=== PATIENT | male | born 1935 | race Asian ===

== ENCOUNTER 2019-12-29 12:08 | Emergency (ER) | payer OTHER ==
[~2019-12-29] VITALS: Ht 154.9 cm; Wt 64.4 kg
[2019-12-29 12:26] VITALS: BP_SYST 105
[2019-12-29 13:25] LABS: BASOPHILS # (AUTO) 0.1 K/uL (0.0-0.2); EOSINOPHILS # (AUTO) 0.1 K/uL (0.0-0.4); HEMATOCRIT 31.1 % (36-54); HEMOGLOBIN 10.1 g/dL (14.0-18.0); LYMPHOCYTES # (AUTO) 1.7 K/uL (1.0-5.5); LYMPHOCYTES % (AUTO) 26.3 % (20.5-51.5); MEAN CORPUSCULAR HEMOGLOBIN 30 pg (27-31); MEAN CORPUSCULAR HGB CONC 33 % (32-36); MEAN CORPUSCULAR VOLUME 93 fL (79.0-98.0); MONOCYTES # (AUTO) 0.5 K/uL (0.0-1.0); MONOCYTES % (AUTO) 7.4 % (1.7-9.3); NEUTROPHILS % (AUTO) 63.3 % (40.0-70.0); PLATELET COUNT (AUTO) 148 K/uL (130-430); RED BLOOD CELL COUNT(AUTO) 3.33 MIL/uL (4.2-6.2); RED CELL DISTRIBUTION WIDTH 13.8 % (9.0-15.0); WHITE BLOOD COUNT (AUTO) 6.3 K/uL (4.8-10.8)
[2019-12-29 13:28] LABS: ANION GAP 6 (5-15); CALCIUM 8.2 mg/dL (8.4-11.0); CHLORIDE 109 mmol/L (98-107); CREATININE 2.03 mg/dL (0.55-1.30); GLUCOSE 143 mg/dL (70-99); POTASSIUM 4.7 mmol/L (3.5-5.1); SODIUM SERUM 141 mmol/L (136-145); UREA NITROGEN, BLOOD 32 mg/dL (8-21)
[2019-12-29 13:39] LABS: ALANINE AMINOTRANSFERASE 21 U/L (12-78); ASPARTATE AMINOTRANSFERASE 15 U/L (10-37); TOTAL BILIRUBIN 0.6 mg/dL (0.0-1.0)
[2019-12-29 14:03] VITALS: BP_SYST 105
== END 2019-12-29 14:01 | disposition home or self-care (01) ==
LOC: SED 12:08
DX: K92.1 Melena (principal); K64.4 Residual hemorrhoidal skin tags; N17.9 Acute kidney failure, unspecified; I10 Essential (primary) hypertension; E11.9 Type 2 diabetes mellitus without complications
CPT/HCPCS: 36415; 80053; 85025; 93005; 99284

== ENCOUNTER 2023-04-16 19:12 | Inpatient (IN) | payer OTHER ==
[~2023-04-16] VITALS: Ht 157.5 cm; Wt 70.3 kg
[2023-04-16] MEDS ORDERED: NACL 0.9% 1,000 ML IV ONE (20:00)
[2023-04-16 21:04] LABS: EOSINOPHILS % (AUTO) 0.1 % (0.0-4.0); HEMATOCRIT 44.6 % (36-54); HEMOGLOBIN 14.1 g/dL (14.0-18.0); LYMPHOCYTES # (AUTO) 0.9 K/uL (1.0-5.5); LYMPHOCYTES % (AUTO) 5.6 % (20.5-51.5); MEAN CORPUSCULAR HEMOGLOBIN 29 pg (27-31); MEAN CORPUSCULAR HGB CONC 32 % (32-36); MEAN CORPUSCULAR VOLUME 93 fL (79.0-98.0); MONOCYTES # (AUTO) 1.4 K/uL (0.0-1.0); MONOCYTES % (AUTO) 8.4 % (1.7-9.3); NEUTROPHILS # (AUTO) 13.9 K/uL (1.8-7.7); NEUTROPHILS % (AUTO) 85.9 % (40.0-70.0); RED BLOOD CELL COUNT(AUTO) 4.83 MIL/uL (4.2-6.2); RED CELL DISTRIBUTION WIDTH 14.3 % (9.0-15.0); WHITE BLOOD COUNT (AUTO) 16.2 K/uL (4.8-10.8)
[2023-04-16 21:09] LABS: ALANINE AMINOTRANSFERASE 1122 U/L (12-78); ALBUMIN 2.7 g/dL (3.4-4.8); ANION GAP 7 (5-15); ASPARTATE AMINOTRANSFERASE 177 U/L (10-37); BILIRUBIN,DIRECT 1.5 mg/dL (0.0-0.3); CALCIUM 9.1 mg/dL (8.4-11.0); CARBON DIOXIDE 25 mmol/L (23-29); CHLORIDE 100 mmol/L (98-107); CREATININE 2.77 mg/dL (0.55-1.30); GLUCOSE 137 mg/dL (74-106); LIPASE 48 U/L (16-77); POTASSIUM 4.9 mmol/L (3.5-5.1); SODIUM SERUM 132 mmol/L (136-145); TOTAL BILIRUBIN 2.4 mg/dL (0.0-1.0); TOTAL PROTEIN, SERUM 7.3 g/dL (6.4-8.3); UREA NITROGEN, BLOOD 41 mg/dL (8-21)
[2023-04-16] MEDS ORDERED: ACETAMINOPHEN 325 MG TABLET PO PRN (21:30)
[2023-04-16] MEDS ORDERED: MAGNESIUM SULFATE 50 ML IV PRN (21:30)
[2023-04-16] MEDS ORDERED: ZOLPIDEM TARTRATE 5 MG TABLET PO PRN (21:30)
[2023-04-16] MEDS ORDERED: MUPIROCIN 2% TOPICAL OINTMENT 22 GM NS PRN (21:30)
[2023-04-16] MEDS ORDERED: POTASSIUM CHLORIDE 20 MEQ TABLET.ER PO PRN (21:30)
[2023-04-16] MEDS ORDERED: DOCUSATE SODIUM 100 MG CAPSULE PO PRN (21:30)
[2023-04-16] MEDS ORDERED: ONDANSETRON HCL 4 MG/2 ML VIAL IVP PRN (21:30)
[2023-04-16] MEDS ORDERED: LORazepam 2 MG/ML VIAL IVP PRN (21:30)
[2023-04-16] MEDS ORDERED: MORPHINE 2 MG/ML INJ. SYRINGE IVP PRN ×2 (21:30)
[2023-04-16 21:41] LABS: BILIRUBIN,URINE 2+ (NEGATIVE); COLOR,URINE ORANGE (YELLOW); GLUCOSE,URINE NEGATIVE (NEGATIVE); KETONES,URINE NEGATIVE (NEGATIVE); LEUKOCYTE ESTERASE ,URINE NEGATIVE (NEGATIVE); NITRITE, URINE NEGATIVE (NEGATIVE); PROTEIN URINE 2+ (NEGATIVE)
[2023-04-16] MEDS ORDERED: DEXTROSE 50% JECT 50 ML DISP.SYRIN IVP PRN (21:45)
[2023-04-16 21:47] LABS: BLOOD, URINE TRACE (NEGATIVE); CLARITY/URINE HAZY (CLEAR)
[2023-04-16] MEDS ORDERED: NIFE-129 PO (21:52)
[2023-04-16] MEDS ORDERED: FINA5TAB11 PO (21:52)
[2023-04-16] MEDS ORDERED: LOSA100T24 PO (21:52)
[2023-04-16] MEDS ORDERED: SIMV-345 PO (21:52)
[2023-04-16] MEDS ORDERED: ATEN50TA PO (21:52)
[2023-04-16] MEDS ORDERED: METF-379 PO (21:52)
[2023-04-16] MEDS ORDERED: TAMS-11 PO (21:52)
[2023-04-16 21:53] LABS: BACTERIA,URINE FEW /HPF (None Seen); RBC,URINE 0-3 /HPF (0-3); WBC,URINE 0-3 /HPF (0-3)
[2023-04-16] MEDS ORDERED: ASA81 PO (21:53)
[2023-04-16 21:54] LABS: COARSE GRANULAR CASTS,URINE 0-10 /LPF (None Seen); FINE GRANULAR CASTS,URINE 0-10 /LPF (None Seen); MUCUS,URINE 1+ /LPF (None Seen)
[2023-04-16 22:06] LABS: PLATELET COUNT (AUTO) 73 K/uL (130-430)
[2023-04-16 22:55] VITALS: BP_SYST 110; PULSE 84; RESP 18; TEMP 98.3; O2SAT 97
[2023-04-16 23:28] VITALS: BP_SYST 135; PULSE 84; RESP 20; TEMP 97.5
[2023-04-17] VITALS (7 sets, daily range): BP systolic 124–156; PULSE 73–94; RESP 12–20; TEMP 97.8–102.7; O2SAT 93–98
[2023-04-17] MEDS: NACL 0.9% 1,000 ML IV SCH ×3 (02:30→17:30)
[2023-04-17 04:26] LABS: BASOPHILS % (AUTO) 0.1 % (0.0-2.0); EOSINOPHILS % (AUTO) 0.2 % (0.0-4.0); HEMATOCRIT 40.4 % (36-54); LYMPHOCYTES # (AUTO) 0.4 K/uL (1.0-5.5); LYMPHOCYTES % (AUTO) 4.4 % (20.5-51.5); MEAN CORPUSCULAR HEMOGLOBIN 29 pg (27-31); MEAN CORPUSCULAR HGB CONC 32 % (32-36); MEAN CORPUSCULAR VOLUME 91 fL (79.0-98.0); MONOCYTES % (AUTO) 10.2 % (1.7-9.3); NEUTROPHILS # (AUTO) 8.3 K/uL (1.8-7.7); NEUTROPHILS % (AUTO) 85.1 % (40.0-70.0); PLATELET COUNT (AUTO) 53 K/uL (130-430); RED BLOOD CELL COUNT(AUTO) 4.44 MIL/uL (4.2-6.2); RED CELL DISTRIBUTION WIDTH 14.1 % (9.0-15.0); WHITE BLOOD COUNT (AUTO) 9.8 K/uL (4.8-10.8)
[2023-04-17 04:36] LABS: ANION GAP 9 (5-15); CALCIUM 8.9 mg/dL (8.4-11.0); CARBON DIOXIDE 24 mmol/L (23-29); CHLORIDE 104 mmol/L (98-107); CREATININE 2.19 mg/dL (0.55-1.30); GLUCOSE 147 mg/dL (74-106); POTASSIUM 3.6 mmol/L (3.5-5.1); SODIUM SERUM 137 mmol/L (136-145); UREA NITROGEN, BLOOD 35 mg/dL (8-21)
[2023-04-17] MEDS: INSULIN LISPRO SLIDING SCALE 100 UNITS/ML, 3 ML VIAL (humaLOG) SUBCUT PRN ×3 (06:33→19:05)
[2023-04-17] MEDS ORDERED: HEPARIN SODIUM,PORCINE 5,000 UNITS/ML VIAL SUBCUT SCH (09:00)
[2023-04-17] MEDS: cefTRIAXone 1 GM in D5W 50 ML IV SCH (09:25)
[2023-04-17] MEDS ORDERED: ATENOLOL 50 MG TABLET (TENORMIN) PO ONE (21:00)
[2023-04-18 00:35] VITALS: BP_SYST 139; PULSE 66; RESP 19; TEMP 97.1; O2SAT 98
[2023-04-18 05:16] LABS: BASOPHILS % (AUTO) 0.1 % (0.0-2.0); EOSINOPHILS % (AUTO) 0.2 % (0.0-4.0); HEMATOCRIT 37.7 % (36-54); HEMOGLOBIN 12.3 g/dL (14.0-18.0); LYMPHOCYTES # (AUTO) 0.7 K/uL (1.0-5.5); LYMPHOCYTES % (AUTO) 6.7 % (20.5-51.5); MEAN CORPUSCULAR HEMOGLOBIN 30 pg (27-31); MEAN CORPUSCULAR HGB CONC 33 % (32-36); MEAN CORPUSCULAR VOLUME 92 fL (79.0-98.0); MONOCYTES # (AUTO) 1.5 K/uL (0.0-1.0); MONOCYTES % (AUTO) 15.2 % (1.7-9.3); NEUTROPHILS # (AUTO) 7.8 K/uL (1.8-7.7); NEUTROPHILS % (AUTO) 77.8 % (40.0-70.0); PLATELET COUNT (AUTO) 50 K/uL (130-430); RED CELL DISTRIBUTION WIDTH 14.5 % (9.0-15.0); WHITE BLOOD COUNT (AUTO) 10.1 K/uL (4.8-10.8)
[2023-04-18 05:39] LABS: ALANINE AMINOTRANSFERASE 396 U/L (12-78); ALBUMIN 1.8 g/dL (3.4-4.8); ANION GAP 8 (5-15); ASPARTATE AMINOTRANSFERASE 40 U/L (10-37); CALCIUM 8.6 mg/dL (8.4-11.0); CARBON DIOXIDE 25 mmol/L (23-29); CHLORIDE 105 mmol/L (98-107); CREATININE 1.85 mg/dL (0.55-1.30); GLUCOSE 156 mg/dL (74-106); POTASSIUM 3.9 mmol/L (3.5-5.1); SODIUM SERUM 138 mmol/L (136-145); TOTAL BILIRUBIN 1.9 mg/dL (0.0-1.0); TOTAL PROTEIN, SERUM 5.4 g/dL (6.4-8.3); UREA NITROGEN, BLOOD 27 mg/dL (8-21)
[2023-04-18] MEDS: NACL 0.9% 1,000 ML IV SCH (06:05)
[2023-04-18 08:00] VITALS: BP_SYST 160; PULSE 71; RESP 18; TEMP 97.4; O2SAT 97
[2023-04-18 08:06] LABS: HEPATITIS C VIRUS AB Non Reactive (Non Reactive)
[2023-04-18] MEDS ORDERED: ATENOLOL 50 MG TABLET (TENORMIN) PO SCH (09:00)
[2023-04-18 09:08] LABS: AFP, TUMOR MARKER <1.8 ng/mL (0.0-6.4); CARBOHYDRATE AG 19-9 187 U/mL (0-35); CEA 2.6 ng/mL (0.0-4.7)
[2023-04-18] MEDS: cefTRIAXone 1 GM in D5W 50 ML IV SCH (09:41)
[2023-04-18 11:00] VITALS: PULSE 71; RESP 18; O2SAT 97
[2023-04-18 12:30] VITALS: BP_SYST 152; PULSE 78; RESP 17; TEMP 97.7; O2SAT 95
[2023-04-18] MEDS ORDERED: SITA25TA3 PO (15:31)
[2023-04-18 16:00] VITALS: BP_SYST 160; PULSE 78; RESP 19; TEMP 97.9; O2SAT 94
[2023-04-18 17:06] LABS: HEPATITIS A AB, IgM Indeterminate (Negative); HEPATITIS B CORE AB, IgM Negative (Negative); HEPATITIS B SURFACE AG Negative (Negative)
[2023-04-18] MEDS: INSULIN LISPRO SLIDING SCALE 100 UNITS/ML, 3 ML VIAL (humaLOG) SUBCUT PRN (17:59)
[2023-04-18 19:28] VITALS: BP_SYST 154; PULSE 84; RESP 18; TEMP 98.6; O2SAT 100
== END 2023-04-18 20:30 | disposition home health service (06) | DRG 871 ==
LOC: SED 19:12 → STU 21:28 → SMU 04-18 14:33
PROVIDERS: ADMIT General Practice; ATTEND General Practice
DX: A41.9 Sepsis, unspecified organism (principal); N17.0 Acute kidney failure with tubular necrosis; N39.0 Urinary tract infection, site not specified; E44.0 Moderate protein-calorie malnutrition; E87.1 Hypo-osmolality and hyponatremia; N28.9 Disorder of kidney and ureter, unspecified; N20.0 Calculus of kidney; I10 Essential (primary) hypertension; E86.0 Dehydration; K57.90 Diverticulosis of intestine, part unspecified, without perforation or abscess without bleeding; R74.01 Elevation of levels of liver transaminase levels; E80.6 Other disorders of bilirubin metabolism; D72.829 Elevated white blood cell count, unspecified; K76.89 Other specified diseases of liver; D69.6 Thrombocytopenia, unspecified; E11.9 Type 2 diabetes mellitus without complications; Z68.28 Body mass index [BMI] 28.0-28.9, adult
CPT/HCPCS: 36415; 70450-TC; 71045; 74181; 76376; 80048; 80053; 80074; 80076; 81000; 81001; 81015; 82105; 82140; 82378; 82962; 83037; 83690; 83735; 85025; 86301; 96360; 97110-GP; 97116-GP; 97530-GP; 99285; G0378; J0696; J3475; J7060